=== PATIENT | female | born 1980 | race African-American/Black ===

== ENCOUNTER 2016-10-12 11:12 | Emergency (ER) | payer SELFPAY ==
[2016-10-12 11:32] VITALS: BP 157/91
[2016-10-12] MEDS ORDERED: KETOROLAC TROMETHAMINE 30 MG/ML VIAL IM ONE (11:42)
[2016-10-12] MEDS ORDERED: oxyCODONE HCL/ACETAMINOPHEN 1 TAB TABLET PO ONE (11:42)
--- NOTE | 2016-10-12 12:00 | ERNOTE ---
Chest Pain/Cardiac HPI Date of Service: 10/12/16 Chief Complaint: Chest Pain Time Seen by Provider: 10/12/16 11:40 Source: patient Exam Limitations: no limitations Immunizations: IMMUNIZATION HX Immunizations Up to Date Yes Allergies/Adverse Reactions: Allergies No Known Allergies Allergy (Unverified 10/12/16 11:32) Home Medications: HOME MEDICATIONS Methyldopa [Aldomet] 250 mg PO DAILY 10/12/16 [Last Taken Unknown] Naproxen 500 mg PO BID #20 tablet. 10/12/16 [Last Taken Unknown] metFORMIN HCL [Metformin HCl ER] 500 mg PO BID 10/12/16 [Last Taken Unknown] oxyCODONE HCL/ACETAMINOPHEN [Percocet 5 MG/325 MG] 1 tab PO Q6H #12 tablet 10/12 [Last Taken Unknown] Narrative: Patient comes due to a L costophrenic angle chest wall pain that started after patient laugh for a prolonged period of time. Timing: constant Severity/Quality: moderate Location: left chest - on the frontal costophrenic area Chest Pain Radiation: no radiation Activities at Onset: other - laughing Modifying Factors - Worsens: Present: breathing, coughing, movement Nitro Today/Relief: no nitro taken today Aspirin Treatment Today: no aspirin today Associated Symptoms: Absent: headache, dizziness, syncope, cough, shortness of breath, diaphoresis, fever/chills, palpitations, heartburn, nausea, vomiting, abdominal pain, weakness, back pain Prior Chest Pain/Cardiac Workup: Reports: prior chest pain Prior Treatment: Reports: recently seen Review of Systems - Review of Systems Constitutional: Absent: recent illness, fever, chills, diaphoresis, weakness, fatigue, malaise, weight loss, fussy EYE: Present: no symptoms reported ENT: Present: no symptoms reported Respiratory: Absent: shortness of breath, cough, orthopnea, wheezing Cardiology: Absent: chest pain, palpitations, syncope, edema, claudication Gastrointestinal/Abdominal: Present: no symptoms reported Genitourinary: Present: no symptoms reported Musculoskeletal: Present: no symptoms reported Skin: Present: no symptoms reported Neurological: Present: no symptoms reported Endocrine: Present: no symptoms reported Hematologic/Lymphatic: Present: no symptoms reported Psych: Present: no symptoms reported All Other Systems: All systems neg except as marked - Patient's Past Medical History Patient History - Medical: Diabetes Type 2 - Social History Living Situations: home Smoking Status: Current every day smoker - Immunizations Immunizations Up to Date: Yes Physical Exam - Physical Exam General Appearance: Present: wd/wn, alert, no apparent distress Eye Exam: Normal inspection: bilateral Ears, Nose, Throat: Present: normal ENT inspection, normal pharynx. Absent: dry mucous membranes Neck: Present: normal inspection, nontender. Absent: carotid bruit Respiratory: Present: no respiratory distress, normal breath sounds, no accessory muscle use, chest nontender, lungs clear Cardiovascular/Chest: Present: regular rate, rhythm, no murmur, normal peripheral pulses, other - Patient with L chest wall tenderness on movement and palpation. Patient with no crepitus found at the moment.. Absent: JVD Gastrointestinal/Abdominal: Present: normal bowel sounds, nontender, nondistended, soft, no organomegaly Rectal Exam: Present: nontender, normal rectal tone Back Exam: Present: normal inspection, normal range of motion, no CVA tenderness , no vertebral tenderness Extremity Exam: Present: normal inspection, non-tender, normal range of motion, no edema Neurological Exam: Present: alert, oriented, normal mood/affect, no motor/ sensory deficits Skin Exam: Present: normal color, warm/dry Lymphatic Exam: Present: no adenopathy ED Progress - Date and Time Seen: Date and Time: 10/12/16 11:57 Patient with a KAMARI Score: 0. Patient's pain is located to the chest wall area. Patient with no SOB, no diaphoresis, and no pallor. Patient at the moment with a low probability for PE. Patient has a muscular related condition. At this point patient is in low risk for [place]. - Vital Signs Patient's Vital Signs:: I have reviewed the patient's vital signs. Vital Signs: Vital Signs 10/12/16 11:25 Temperature 36.8 C Pulse Rate 88 Respiratory 14 Rate Blood Pressure 157/91 O2 Sat by Pulse 100 Oximetry - EKG EKG: NSR EKG read: Interp. by me EKG Comments: HR: 74, No ST Elevation - X-Ray X-Ray #1 X-Ray: chest Interpretation: Interp. by me X-ray Comments: No pneumothorax, No infiltrates and no consolidates - Progress/Reassessment Chief Complaint: Chest Pain - Transfer of Care Expected Disposition: Discharge Plan - Plan Plan: Patient will be given Tx for pain and is to follow up with her PCP Departure - Departure Clinical Impression: Chest wall pain Disposition: Home self-care Condition: Stable Instructions: Chest Pain, Pediatric Additional Instructions: If your condition fails to resolve or get worse please return to the Emergency Room. Prescriptions: Naproxen 500 mg PO BID #20 tablet. oxyCODONE HCL/ACETAMINOPHEN [Percocet 5 MG/325 MG] 1 tab PO Q6H #12 tablet
== END 2016-10-12 12:24 | disposition home or self-care (01) ==
LOC: ER 11:12
DX: R07.89 Other chest pain (principal); F17.210 Nicotine dependence, cigarettes, uncomplicated; E11.9 Type 2 diabetes mellitus without complications

== ENCOUNTER 2016-10-19 22:29 | Emergency (ER) | payer SELFPAY ==
[2016-10-20] MEDS ORDERED: oxyCODONE HCL/ACETAMINOPHEN 1 TAB TABLET PO ONE (03:21)
[2016-10-20] MEDS ORDERED: AMOXICILLIN TRIHYDRATE 250 MG CAPSULE PO ONE (03:21)
[2016-10-20] MEDS ORDERED: AMOXICILLIN TRIHYDRATE 250 MG CAPSULE ONE (03:25)
[2016-10-20] MEDS ORDERED: oxyCODONE HCL/ACETAMINOPHEN 1 TAB TABLET ONE (03:25)
--- NOTE | 2016-10-20 03:25 | ERNOTE ---
ENT HPI Presenting Symptoms: dental pain Time Seen by Provider: 10/20/16 03:17 Source: patient Exam Limitations: no limitations - Immun/Allergies/Home Medications Immunizations: IMMUNIZATION HX Immunizations Up to Date Yes History of Influenza Vaccine Yes Hx Pneumococcal Vaccination No Allergies/Adverse Reactions: Allergies Allergy/AdvReac Type Severity Reaction Status Date / Time No Known Allergies Allergy Unverified 10/12/16 11:32 Home Medications: HOME MEDICATIONS Naproxen 500 mg PO BID #20 tablet. 10/12/16 [Last Taken Unknown] metFORMIN HCL [Metformin HCl ER] 500 mg PO BID 10/12/16 [Last Taken Unknown] oxyCODONE HCL/ACETAMINOPHEN [Percocet 5 MG/325 MG] 1 tab PO Q6H #12 tablet 10/12 [Last Taken Unknown] Amoxicillin Trihydrate [Amoxil] 500 mg PO TID #30 cap 10/20/16 [Last Taken Unknown] oxyCODONE HCL/ACETAMINOPHEN [Percocet 5 MG/325 MG] 1 tab PO Q4H PRN #10 tab [Last Taken Unknown] - History of Present Illness Narrative: Patient has had left upper molar pain for three days now, non of the over the counter medications are working. Since it is the weekend she has not found a dentist yet, she denies any other symptoms Date (Duration): 10/18/16 Severity: Present: moderate ENT Location: Present: dental Prearrival Treatment: Present: over the counter meds Review of Systems - Review of Systems Constitutional: Absent: recent illness, fever ENT: Absent: nose congestion, sore throat Respiratory: Absent: shortness of breath Cardiology: Absent: chest pain Gastrointestinal/Abdominal: Absent: nausea, vomiting Genitourinary: Present: no symptoms reported Neurological: Absent: headache - Patient's Past Medical History Patient History - Medical: Diabetes Type 2 Patient History - Cardiac/Respiratory: Hypertension Patient History - Cancer: No Hx of Cancer Patient History - Surgical Procedures: No surgical history Patient History - Other: None LMP (females 10-50): 3 weeks - Social History Living Situations: home Psych History: No pertinent hx Smoking Status: Current every day smoker Patient requests Smoking Cessation Consult: No Initiate information on Smoking Cessation: No Alcohol Use: none Drug Use: none - Immunizations Immunizations Up to Date: Yes Hx Pneumococcal Vaccination: No History of Influenza Vaccine: Yes Physical Exam - Physical Exam General Appearance: Present: wd/wn, alert, mild distress Eye Exam: Normal inspection: bilateral, PERRL: bilateral Ears, Nose, Throat: Present: normal pharynx, other - multiple teeth missing, fractures tooth left upper jaw, tender gums with slight swelling Respiratory: Present: no respiratory distress, normal breath sounds, no accessory muscle use, lungs clear Cardiovascular/Chest: Present: regular rate, rhythm, no murmur Gastrointestinal/Abdominal: Present: normal bowel sounds, nontender, nondistended, soft Neurological Exam: Present: alert, oriented, normal mood/affect Skin Exam: Present: normal color, warm/dry ED Progress - Vital Signs Patient's Vital Signs:: I have reviewed the patient's vital signs. Vital Signs: Vital Signs 10/19/16 10/20/16 22:40 00:33 Temperature 37.2 C 36.4 C L Pulse Rate 91 85 Respiratory 20 18 Rate Blood Pressure 161/92 151/93 O2 Sat by Pulse 100 98 Oximetry - Progress/Reassessment Chief Complaint: Dental Problem Departure Clinical Impression: Pain, dental - Departure Disposition: Home self-care Condition: Good Instructions: Dental Abscess, [id number] Additional Instructions: follow up with a dentist [facility] Prescriptions: Amoxicillin Trihydrate [Amoxil] 500 mg PO TID #30 cap oxyCODONE HCL/ACETAMINOPHEN [Percocet 5 MG/325 MG] 1 tab PO Q4H PRN #10 tab PRN Reason: Pain
[2016-10-20 03:31] VITALS: BP 148/84
== END 2016-10-20 03:31 | disposition home or self-care (01) ==
LOC: ER 22:29
DX: K08.89 Other specified disorders of teeth and supporting structures (principal); E11.9 Type 2 diabetes mellitus without complications; F17.210 Nicotine dependence, cigarettes, uncomplicated

== ENCOUNTER 2016-11-08 18:56 | Emergency (ER) | payer MEDICAID ==
[2016-11-08 19:08] VITALS: BP 151/96
--- NOTE | 2016-11-08 19:26 | ERNOTE ---
Medical Problem HPI - Narrative Date of Service: 11/08/16 - General Chief Complaint: General Assessment Time Seen by Provider: 11/08/16 19:14 Source: patient, RN notes reviewed, old records Exam Limitations: no limitations - Immun/Allergies/Home Medications Immunizations: IMMUNIZATION HX Immunizations Up to Date Yes History of Influenza Vaccine Yes Hx Pneumococcal Vaccination Yes Allergies/Adverse Reactions: Allergies No Known Allergies Allergy (Verified 11/08/16 19:08) Home Medications: HOME MEDICATIONS Methyldopa 250 mg PO BID #60 tablet 11/08/16 [Last Taken Unknown] metFORMIN HCL [Metformin HCl ER] 500 mg PO BID #60 [id number] 11/08/16 [Last Taken Unknown] - History of Present History Narrative: 36 y/o female ambulatory to the ED for medication refills. She reports being new to the area and not having time to establish with a primary care provider. She has been without her blood pressure medication for 3 months and her metformin for 1 month. She does not check her blood sugar. She had a headache at work today. Her blood pressure was found to be elevated so she was directed to come here. She is currently asymptomatic. Of note, she has been in the ED twice in the past month - once for dental pain and once for chest wall pain. She was prescribed Percocet on both occasions. Review of Systems - Review of Systems Constitutional: Absent: recent illness, fever EYE: Absent: eye pain, vision changes ENT: Present: no symptoms reported Respiratory: Absent: shortness of breath, cough Cardiology: Absent: chest pain, edema Gastrointestinal/Abdominal: Absent: nausea, abdominal pain Genitourinary: Absent: other - possible Musculoskeletal: Present: no symptoms reported Skin: Present: no symptoms reported Neurological: Absent: headache, dizziness/light-headedness, weakness, numbness, tingling Endocrine: Present: no symptoms reported Hematologic/Lymphatic: Present: no symptoms reported Psych: Present: no symptoms reported - Patient's Past Medical History Patient History - Medical: Diabetes Type 2 Patient History - Cardiac/Respiratory: Hypertension Patient History - Cancer: No Hx of Cancer Patient History - Surgical Procedures: No surgical history Patient History - Other: None LMP (Calendar): 10/25/16 - Social History Living Situations: home Psych History: No pertinent hx Smoking Status: Current every day smoker Alcohol Use: none Drug Use: none - Immunizations Immunizations Up to Date: Yes Hx Pneumococcal Vaccination: Yes History of Influenza Vaccine: Yes Physical Exam - Physical Exam General Appearance: Present: wd/wn, alert, no apparent distress, obese Eye Exam: Normal inspection: bilateral, PERRL: bilateral Ears, Nose, Throat: Present: normal ENT inspection Neck: Present: normal inspection, nontender, supple Respiratory: Present: no respiratory distress, normal breath sounds, no accessory muscle use, lungs clear Cardiovascular/Chest: Present: regular rate, rhythm, no murmur Extremity Exam: Present: normal inspection, normal range of motion, no edema Neurological Exam: Present: alert, oriented, normal mood/affect, no motor/ sensory deficits Skin Exam: Present: normal color, warm/dry ED Progress - Vital Signs Patient's Vital Signs:: I have reviewed the patient's vital signs. Vital Signs: Vital Signs 11/08/16 19:01 Temperature 36.8 C Pulse Rate 94 Respiratory 18 Rate Blood Pressure 151/96 O2 Sat by Pulse 99 Oximetry - Progress/Reassessment Chief Complaint: General Assessment Progress:: Unchanged Departure - Departure Clinical Impression: Medication refill Disposition: Home Follow Up Needed Condition: Good Additional Instructions: Contact [facility] on Friday to establish with a primary care provider Prescriptions: Methyldopa 250 mg PO BID #60 tablet metFORMIN HCL [Metformin HCl ER] 500 mg PO BID #60 [id number]
== END 2016-11-08 19:30 | disposition home or self-care (01) ==
LOC: ER 18:56
DX: E11.9 Type 2 diabetes mellitus without complications (principal); I10 Essential (primary) hypertension

== ENCOUNTER 2016-12-03 21:56 | Emergency (ER) | payer MEDICAID ==
--- NOTE | 2016-12-03 23:06 | ERNOTE ---
Lower Extremity HPI - Narrative Date of Service: 12/03/16 - General Lower Extremities Pain: knee: right Time Seen by Provider: 12/03/16 22:43 Source: patient - Immun/Allergies/Home Medications Immunizations: IMMUNIZATION HX Immunizations Up to Date Yes History of Influenza Vaccine Yes Hx Pneumococcal Vaccination No Allergies/Adverse Reactions: Allergies Allergy/AdvReac Type Severity Reaction Status Date / Time No Known Allergies Allergy Verified 12/03/16 22:12 Home Medications: HOME MEDICATIONS Methyldopa 250 mg PO BID #60 tablet 11/08/16 [Last Taken Unknown] metFORMIN HCL [Metformin HCl ER] 500 mg PO BID #60 [id number] 11/08/16 [Last Taken Unknown] - History of Present Illness Narrative: Has noted right knee pain and grinding. Pain has increased over last several days and she spends most of the day walking on concrete at work. Has had minimal swelling. Denies any injury. Review of Systems - Review of Systems Constitutional: Present: no symptoms reported Respiratory: Present: no symptoms reported Cardiology: Present: no symptoms reported Gastrointestinal/Abdominal: Present: no symptoms reported Musculoskeletal: Present: See HPI Skin: Present: no symptoms reported - Patient's Past Medical History Patient History - Medical: Chronic Pain, Diabetes Type 2, Other Patient History - Cardiac/Respiratory: Hypertension Patient History - Cancer: No Hx of Cancer Patient History - Surgical Procedures: Tubal Ligation Patient History - Other: None LMP (females 10-50): last week LMP (Calendar): 10/25/16 - Social History Living Situations: spouse Abuse History: No History of abuse Psych History: No pertinent hx Smoking Status: Current every day smoker Have you smoked in the past 12 months: Yes Do you dip or chew tobacco: No Alcohol Use: none Drug Use: none - Immunizations Immunizations Up to Date: Yes Hx Pneumococcal Vaccination: No History of Influenza Vaccine: Yes Physical Exam - Physical Exam General Appearance: Present: wd/wn, alert, no apparent distress Extremity Exam: Present: other - right knee with lateral and medial joint tenderness. No effusion. FROM. Negative patellar rock and no ligatmentus laxity ED Progress - Vital Signs Vital Signs: Vital Signs 12/03/16 22:06 Temperature 36.5 C Pulse Rate 89 Respiratory 16 Rate Blood Pressure 157/86 O2 Sat by Pulse 100 Oximetry - X-Ray X-Ray #1 X-Ray: knee - No acute changes - Progress/Reassessment Chief Complaint: Lower Extremity Pain/ Injury Plan - Plan Plan: No strenuous activity Use ibuprofen 600 mg alternating with tylenol 1000 mg every 3 hours. Follow up with PCP Departure Clinical Impression: Tendonitis of knee, right - Departure Disposition: Home self-care Condition: Good Instructions: Tendinitis, [id number] Additional Instructions: No strenuous activity Use ibuprofen 600 mg alternating with tylenol 1000 mg every 3 hours. Elevation/heat Follow up with PCP
[2016-12-03] MEDS ORDERED: IBUPROFEN 400 MG TABLET PO ONE (23:39)
[2016-12-03] MEDS ORDERED: IBUPROFEN 400 MG TABLET ONE ×2 (23:41→23:43)
[2016-12-03 23:45] VITALS: BP 129/71
== END 2016-12-03 23:45 | disposition home or self-care (01) ==
LOC: ER 21:56
DX: M76.9 Unspecified enthesopathy, lower limb, excluding foot (principal); E11.9 Type 2 diabetes mellitus without complications; I10 Essential (primary) hypertension; F17.200 Nicotine dependence, unspecified, uncomplicated